=== PATIENT | male | born 1970 | race Asian ===

== ENCOUNTER 2017-01-27 07:43 | Emergency (ER) | payer BC ==
[~2017-01-27] VITALS: Ht 152.4 cm; Wt 103.2 kg
[2017-01-27 07:46] VITALS: Ht 152.4 cm; Wt 103.2 kg
[2017-01-27] MEDS ORDERED: SOD CHLORIDE 0.9% 1,000 ML IV STA (08:20)
--- NOTE | 2017-01-27 09:15 | ERD ---
ER Documentation Chief Complaint Chief Complaint sycope yesterday hit head HPI 46-year-old man with history of hypertension diabetes mellitus had a syncopal episode yesterday while in a hotel, and struck his posterior scalp. He has continued scalp pain so came here for evaluation. He denies current loss of consciousness today, no chest pain or palpitations, no fevers or chills, no headache or blurry vision, no vomiting or diarrhea. Patient denies recent antibiotic use. Patient denies weakness in his arms or legs, no slurred speech. ROS All systems reviewed and are negative except as per history of present illness. Medications Home Meds Active Scripts Ibuprofen* (Ibuprofen*) 600 Mg Tablet, 600 MG PO Q8 for PAIN AND/OR INFLAMMATION , #30 TAB Prov:CRYSTAL RING MD 01/27/17 Reported Medications Atorvastatin Calcium (Atorvastatin Calcium) 10 Mg Tablet, 10 MG PO QHS, #30 TAB 01/27/17 Amlodipine Besylate* (Norvasc*) 10 Mg Tablet, 10 MG PO DAILY, TAB 01/27/17 Losartan-Hydrochlorothiazide (Losartan-HCTZ) 100-12.5 Mg Tab, 1 TAB PO DAILY, TAB 01/27/17 Empagliflozin (Jardiance) 10 Mg Tablet, 10 MG PO DAILY, TAB 01/27/17 Allergies Allergies: Coded Allergies: Penicillins (Verified Allergy, Severe, 01/27/17) PMhx/Soc Hypertension and diabetes mellitus FmHx Family History: No diabetes Physical Exam Vitals Vital Signs Date Time Temp Pulse Resp B/P Pulse Ox O2 Delivery O2 Flow Rate FiO2 01/27/17 10:22 88 20 148/68 98 Room Air 01/27/17 07:46 98.2 101 18 164/91 99 Physical Exam GENERAL: Well-developed, well-nourished, well-hydrated, in no apparent distress , looks nontoxic in appearance HEENT: Moist mucous membranes, pink conjunctiva, no cervical spine tenderness or step-off deformities, no goiter, no jaundice or icterus, extraocular movements intact without pain. No submandibular induration, and no pharyngeal erythema NEURO: Alert and oriented 3, cranial nerves II through XII intact bilaterally, pupils equal round reactive to light, no focal deficits or facial asymmetry, sensation intact distally Strength 5/5 in upper and lower extremities bilaterally CARDIAC: Regular rate and rhythm, no murmurs rubs or gallops LUNGS: Clear bilaterally no wheezing crackles or stridor ABDOMEN: Soft nontender, no guarding, no rigidity, no rebound, no psoas sign no obturator sign. Normoactive bowel sounds SKIN: Warm and dry to touch, no abrasions, contusions, or hematomas, no lacerations, no ecchymosis, no target lesions, and without ulcers EXTREMITIES: No clubbing cyanosis or edema, calves are bilaterally symmetrical, no Homans sign, no popliteal cord sign. Distal pulses equal and bilateral PSYCH: Normal affect without agitation or irritability Result Diagram: 01/27/17 0900 01/27/17 0900 Results 24 hrs Laboratory Tests Test 01/27/17 09:00 White Blood Count 10.810^3/ul Red Blood Count 5.1310^6/ul Hemoglobin 15.6g/dl Hematocrit 47.2% Mean Corpuscular Volume 92.0fl Mean Corpuscular Hemoglobin 30.4pg Mean Corpuscular Hemoglobin Concent 33.1g/dl Red Cell Distribution Width 12.1% Platelet Count 62634^3/UL Mean Platelet Volume 10.9fl Neutrophils % 68.4% Lymphocytes % 19.2% Monocytes % 8.9% Eosinophils % 2.4% Basophils % 0.6% Nucleated Red Blood Cells % 0.0/100WBC Neutrophils # 7.410^3/ul Lymphocytes # 2.110^3/ul Monocytes # 1.010^3/ul Eosinophils # 0.310^3/ul Basophils # 0.110^3/ul Nucleated Red Blood Cells # 0.010^3/ul Sodium Level 139mmol/L Potassium Level 4.0mmol/L Chloride Level 105mmol/L Carbon Dioxide Level 25mmol/L Anion Gap 13 Blood Urea Nitrogen 17mg/dl Creatinine 0.86mg/dl Glucose Level 268mg/dl Calcium Level 8.5mg/dl Total Bilirubin 0.2mg/dl Direct Bilirubin 0.00mg/dl Indirect Bilirubin 0.2mg/dl Aspartate Amino Transf (AST/SGOT) 34IU/L Alanine Aminotransferase (ALT/SGPT) 65IU/L Alkaline Phosphatase 117IU/L Troponin I < 0.012ng/ml Total Protein 7.1g/dl Albumin 3.5g/dl Globulin 3.60g/dl Albumin/Globulin Ratio 0.97 Lipase 164U/L Current Medications Medications (Trade) Dose Ordered Sig/[place] Route PRN Reason Start Time Stop Time Status Last Admin Dose Admin Sodium Chloride (NS) 1,000 ml @ 1,000 mls/hr Q1H STAT IV 01/27/17 08:20 01/27/17 09:19 DC Procedures/MDM IV line was established patient was placed on monitoring manager rhythm strip revealed a sinus rhythm at about 90 bpm with upright P and T waves. Patient was afebrile CT scan of the brain was performed is negative for acute bleed mass or shift. EKG performed, read by me: 95 bpm, normal sinus rhythm, normal axis, no acute ST segment changes, narrow QRS complex, with good R-wave progression in precordial leads. I administered 1 L normal saline intravenously. CBC and electrolytes were normal, liver function tests were normal, troponin was negative. Differential diagnoses considered, included but not limited to acute coronary syndrome, pulmonary embolism, aortic dissection, abdominal aortic aneurysm, sepsis, stroke, meningitis, encephalitis, pneumonia, appendicitis, cholecystitis , bowel obstruction, pyelonephritis, nephrolithiasis, cystitis, as well as metabolic, hematologic, and electrolyte abnormalities. As well as abscess, cellulitis, fractures, and dislocations. Patient feels much better at this time, and vital signs are normal, symptoms have improved. I did give strict instructions to return to the ED if symptoms continue or worsen, patient will otherwise follow-up with primary care physician. Patient understood instructions and agreed to plan. Disclaimer: Inadvertent spelling and grammatical errors are likely due to EHR/ dictation software use and do not reflect on the overall quality of patient care. Also, please note that the electronic time recorded on this note does not necessarily reflect the actual time of the patient encounter. Departure Diagnosis: Primary Impression: Syncope Syncope type: unspecified Qualified Code: R55 - Syncope, unspecified syncope type Additional Impression: Scalp contusion Encounter type: initial encounter Qualified Code: S00.03XA - Contusion of scalp, initial encounter Condition: CRYSTAL Perez MD Jan 27, 2017 09:15
[2017-01-27 09:18] LABS: BASOPHIL # 0.1 10^3/ul (0.0-0.1); BASOPHILS % 0.6 % (0.0-2.0); EOSINOPHILS # 0.3 10^3/ul (0.0-0.5); EOSINOPHILS % 2.4 % (0.0-7.0); HEMATOCRIT 47.2 % (42.0-52.0); HEMOGLOBIN 15.6 g/dl (14.0-18.0); LYMPHOCYTES # 2.1 10^3/ul (0.8-2.9); LYMPHOCYTES % 19.2 % (15.0-51.0); MEAN CORPUSCULAR HEMOGLOBIN 30.4 pg (29.0-33.0); MEAN CORPUSCULAR HGB CONC 33.1 g/dl (32.0-37.0); MEAN PLATELET VOLUME 10.9 fl (7.4-10.4); MONOCYTES % 8.9 % (0.0-11.0); NEUTROPHIL # 7.4 10^3/ul (1.6-7.5); NEUTROPHILS % 68.4 % (39.0-77.0); PLATELET COUNT 246 10^3/UL (140-415); RED BLOOD COUNT 5.13 10^6/ul (4.70-6.10); RED CELL DISTRIBUTION WIDTH 12.1 % (11.5-14.5); WHITE BLOOD COUNT 10.8 10^3/ul (4.8-10.8)
--- NOTE | 2017-01-27 09:18 | RADRPT ---
PROCEDURE: CT Brain without contrast. CLINICAL INDICATION: Right occipital trauma, pain. TECHNIQUE: A CT of the brain without contrast was performed utilizing axial sections from the skul l base through the vertex. One or more the following does reduction techniques were utilized: [employer] is[place] exposure control, adjustment of the mA/ or kV according to patient's size, or use of iterative r econstruction technique. Total exam CTDIvol is 44.19 MGy and DLP is 720.23 mGy-cm. DICOM images are available. COMPARISON: None available. FINDINGS: The ventricles and sulci are minimally prominent indicative of volume loss. There is no intracrania l hemorrhage, mass effect or midline shift. No abnormal intra-axial or extra-axial fluid collection s are seen. The buitrago/white matter differentiation is well preserved. No acute skull abnormality is noted. The visualized paranasal sinuses are essentially clear. IMPRESSION: 1. No acute intracranial hemorrhage, transcortical infarction or mass effect. 2. Minimal generalized cerebral volume loss. RPTAT: HFN .Ag Villalobos MD, MD Date Time Electronically viewed and signed by .Ag Villalobos MD, on 01/27/2017 09:17 .N/
[2017-01-27] MEDS ORDERED: IBUP-1542 PO (09:24)
[2017-01-27] MEDS ORDERED: EMPA10TA PO (09:27)
[2017-01-27] MEDS ORDERED: LOSA1TAB28 PO (09:28)
[2017-01-27] MEDS ORDERED: ATOR10TA65 PO (09:28)
[2017-01-27] MEDS ORDERED: AMLO-218 PO (09:28)
[2017-01-27 09:32] LABS: ALANINE AMINOTRANSFERASE 65 IU/L (13-69); ALBUMIN 3.5 g/dl (3.3-4.9); ALBUMIN/GLOBULIN RATIO 0.97; ALKALINE PHOSPHATASE 117 IU/L (42-121); ANION GAP 13 (8-16); ASPARTATE AMINO TRANSFERASE 34 IU/L (15-46); BILIRUBIN,INDIRECT 0.2 mg/dl (0-1.1); BILIRUBIN,TOTAL 0.2 mg/dl (0.2-1.3); BLOOD UREA NITROGEN 17 mg/dl (7-20); CALCIUM 8.5 mg/dl (8.4-10.2); CARBON DIOXIDE 25 mmol/L (21-31); CHLORIDE 105 mmol/L (97-110); CREATININE 0.86 mg/dl (0.61-1.24); GLUCOSE 268 mg/dl (70-220); SODIUM 139 mmol/L (135-144); TOTAL PROTEIN 7.1 g/dl (6.1-8.1)
[2017-01-27 09:49] LABS: TROPONIN-I < 0.012 ng/ml (0.00-0.12)
[2017-01-27 10:22] VITALS: BP 148/68; PULSE 88; RESP 20
== END 2017-01-27 10:23 | disposition home or self-care (01) ==
LOC: E/R 07:43
DX: R55 Syncope and collapse (principal); S00.03XA Contusion of scalp, initial encounter; I10 Essential (primary) hypertension; E11.9 Type 2 diabetes mellitus without complications; W22.8XXA Striking against or struck by other objects, initial encounter; Y92.59 Other trade areas as the place of occurrence of the external cause
CPT/HCPCS: 70450; 80053; 83690; 84484; 85025; 99285; J7030